=== PATIENT | female | born 1945 | race Caucasian/White ===

== ENCOUNTER 2019-06-07 08:33 | Outpatient (RCR) | payer MEDICARE, SELFPAY | END 2019-07-01 23:59 | disposition home or self-care (01) | LOC: SPT 08:33 | PROVIDERS: Family Provider Internal Medicine; Visit Provider Orthopaedic Surgery | DX: Z47.1 Aftercare following joint replacement surgery (principal); Z96.659 Presence of unspecified artificial knee joint | CPT/HCPCS: 97110; 97150; 97161 ==

== ENCOUNTER 2019-07-02 06:00 | Outpatient (RCR) | payer MEDICARE, SELFPAY | END 2019-07-30 23:59 | disposition home or self-care (01) | LOC: SPT 06:00 | PROVIDERS: Family Provider Internal Medicine; Visit Provider Orthopaedic Surgery | DX: Z47.89 Encounter for other orthopedic aftercare (principal); Z96.652 Presence of left artificial knee joint | CPT/HCPCS: 97110 ==